=== PATIENT | female | born 2005 | race Caucasian/White ===

== ENCOUNTER 2025-04-21 00:57 | Emergency (ER) | payer OTHER ==
[~2025-04-21] VITALS: Ht 165.1 cm; Wt 68.3 kg
[2025-04-21] MEDS ORDERED: MULTTAB20 PO (01:08)
[2025-04-21] MEDS: CETIRIZINE 10 MG TAB PO ONE (01:46)
[2025-04-21 02:07] VITALS: BP 107/56; TEMP 97.4; O2SAT 98
== END 2025-04-21 02:09 | disposition home or self-care (01) ==
LOC: M ED 00:57
DX: R09.81 Nasal congestion (principal); J30.9 Allergic rhinitis, unspecified; Z79.899 Other long term (current) drug therapy